=== PATIENT | male | born 1965 | race Caucasian/White ===

== ENCOUNTER 2018-03-21 15:50 | Emergency (ER) | payer BC ==
--- NOTE | 2018-03-21 16:18 | Emergency Department Record ---
History of Present Illness - General Chief Complaint: Fall Injury Stated Complaint: SLIP AND FALL/ RT SIDE SHOULDER/ARM SORNESS Time Seen by Provider: 03/21/18 16:02 Source: Patient Mode of Arrival: Ambulatory Limitations: No limitations - History of Present Illness Initial Comments: The patient is here due to R shoulder pain after slipping and falling yesterday. He landed directly on the R shoulder. The patient denies any head or neck injury. He also denies any CP, rib pain, or AP. The pain increases with ROM of the R shoulder. Complaint: Fall Onset/Timin -: Days(s) Fall From: Standing Fall Witnessed: No Place Fall Occurred: Home Loss of Consciousness: None Prolonged Down Time?: No Symptoms Prior to Fall: None Severity scale (1-10): 6 Quality: Aching, Stabbing Context: Tripped/slipped Associated Symptoms: Denies - [place] Coma Scale Eye Response: (4) Open spontaneously Motor Response: (6) Obeys commands Verbal Response: (5) Oriented [place] Total: 15 - Related Data Home Medications Medication Instructions Recorded Confirmed Last Taken Metformin HCl [Metformin ER 1 tab PO DAILY 03/21/18 03/21/18 03/21/18 Gastric] Previous Rx's Medication Instructions Recorded Naproxen [Naprosyn] 500 mg PO BID #14 tablet. 03/21/18 Allergies Allergy/AdvReac Type Severity Reaction Status Date / Time No Known Allergies Allergy Mild none Verified 03/21/18 16:03 Travel Screening - Travel/Exposure Within Last 30 Days Have you traveled within the last 30 days?: Yes Location Detail:: [facility] - Travel/Exposure Within Last Year Have you traveled outside the [place] in the last year?: Yes Location Detail:: [facility] - Additonal Travel Details Have you been exposed to anyone with a communicable illness?: No - Travel Symptoms Symptom Screening: None Review of Systems Constitutional: Denies: Chills, Fever Past Medical History - SOCIAL HISTORY Smoking Status: Former smoker Alcohol Use: None Drug Use: None - RESPIRATORY Hx Respiratory Disorders: No - CARDIOVASCULAR Hx Cardio Disorders: No - NEURO Hx Neuro Disorders: No - GI Hx GI Disorders: No - Hx Genitourinary Disorders: No - ENDOCRINE Hx Endocrine Disorders: Yes Hx Diabetes: Yes Hx Thyroid Disease: Yes - MUSCULOSKELETAL Hx Musculoskeletal Disorders: No - PSYCH Hx Psych Problems: No Family Medical History Any Significant Family History?: Yes Hx Diabetes: Father, Grandparents Hx Heart Disease: Father Hx HTN: Father Physical Exam - General General Appearance: Alert, Oriented x3, Cooperative, No acute distress - Head Head exam: Atraumatic, Normocephalic, Normal inspection - Eye Eye exam: Normal appearance, PERRL - Neck Neck exam: Normal inspection, Full ROM. negative: Tenderness - Respiratory Respiratory exam: Normal lung sounds bilaterally. negative: Respiratory distress - Cardiovascular Cardiovascular Exam: Regular rate, Normal rhythm, Normal heart sounds - GI/Abdominal GI/Abdominal exam: Soft, Normal bowel sounds. negative: Tenderness - Extremities Extremities exam: Normal inspection, Normal capillary refill, Tenderness (There is diffuse anterior and lateral R shoulder tenderness.), Other (The R arm is NVI with normal pulses.). negative: Full ROM (There is decreased flexion, extension, and abduction due to pain. The patient is able to abduct to 90 degrees with pain. ), Joint swelling Course Vital Signs 03/21/18 15:54 Temperature 98.4 F Pulse Rate 109 H Respiratory 20 Rate Blood Pressure 130/91 Pulse Ox 98 - Reevaluation(s) Reevaluation #1: I did discuss the need to see his PCP later this week for recheck and to wear the sling for a week. We also did discuss the neg xrays. 03/21/18 16:49 03/21/18 16:50 Medical Decision Making - Data Complexity MDM Data: X-Ray Ordered and/or Reviewed - Radiology Data Radiology results: Report reviewed (R shoulder: Neg for any acute injury per rad.) Disposition Disposition: Discharge Clinical Impression: Strain of shoulder, right Qualifiers: Encounter type: initial encounter Qualified Code(s): S46.911A - Strain of unspecified muscle, fascia and tendon at shoulder and upper arm level, right arm , initial encounter Disposition: Home, Self-Care Condition: (2) Stable Instructions: Rotator Cuff Injury (ED) Additional Instructions: Please wear the sling for a week and use Naprosyn for pain. Please see your family doctor later this week or early next week for recheck. Prescriptions: Naproxen [Naprosyn] 500 mg PO BID #14 tablet.dr Forms: Patient Portal Access Time of Disposition: 16:51 Quality - Quality Measures Quality Measures: N/A - Blood Pressure Screening View Details: Yes Does Patient Have Any of the Following: No Blood Pressure Classification: Pre-Hypertensive BP Reading Systolic Measurement: 146 Diastolic Measurement: 82 Screening for High Blood Pressure: < Pre-Hypertensive BP, F/U Documented > [ [id number]] Pre-Hypertensive Follow-up Interventions: Referral to alternative/primary care provider.
--- NOTE | 2018-03-23 08:28 | RADIOLOGY REPORT ---
EXAM: RIGHT SHOULDER HISTORY: LATERAL PAIN WITH MOTION ONE DAY POST FALL. TECHNIQUE: Three views of the right shoulder were obtained. Comparison: Two view radiographic examination of the chest dated 02/24/12. Encounter: Initial. FINDINGS: There is normal bone mineralization. No acute fracture, dislocation , or destructive bone lesion is seen. There is mild irregularity of the superior margin of the greater tuberosity likely relating to repetitive trauma. The articular relations are otherwise maintained. IMPRESSION: NO ACUTE FRACTURE NOR DISLOCATION IDENTIFIED. MINOR IRREGULARITY OF THE SUPERIOR MARGIN OF THE GREATER TUBEROSITY OF THE HUMERUS LIKELY RELATING TO REPETITIVE TRAUMA. JOB NUMBER: [id number] [facility]
== END 2018-03-21 16:59 | disposition home or self-care (01) ==
LOC: ER 15:50
DX: S46.911A Strain of unspecified muscle, fascia and tendon at shoulder and upper arm level, right arm, initial encounter (principal); W00.0XXA Fall on same level due to ice and snow, initial encounter; Y92.007 Garden or yard of unspecified non-institutional (private) residence as the place of occurrence of the external cause; Z87.891 Personal history of nicotine dependence
CPT/HCPCS: 99283